=== PATIENT | male | born 1975 | race Caucasian/White ===

== ENCOUNTER 2017-03-18 17:29 | Emergency (ER) | payer MEDICAID ==
[2017-03-18] MEDS: SOD CHLORIDE 0.9% 1,000 ML IV ×3 (19:00→20:30)
[2017-03-18 19:31] LABS: ADD MAN DIFF? NO
[2017-03-18 19:35] LABS: WHITE BLOOD COUNT 4.1 10^3/ul (4.8-10.8)
[2017-03-18 19:35] LABS: EOSINOPHILS % 0.7 % (0.0-7.0); HEMATOCRIT 40.2 % (42.0-52.0); HEMOGLOBIN 14.1 g/dl (14.0-18.0); LYMPHOCYTES # 1.5 10^3/ul (0.8-2.9); LYMPHOCYTES % 36.7 % (15.0-51.0); MEAN CORPUSCULAR HEMOGLOBIN 29.8 pg (29.0-33.0); MEAN CORPUSCULAR HGB CONC 35.1 g/dl (32.0-37.0); MEAN PLATELET VOLUME 10.4 fl (7.4-10.4); MONOCYTE # 0.4 10^3/ul (0.3-0.9); NEUTROPHIL # 2.1 10^3/ul (1.6-7.5); NEUTROPHILS % 51.4 % (39.0-77.0); PLATELET COUNT 254 10^3/UL (140-415); RED BLOOD COUNT 4.73 10^6/ul (4.70-6.10); RED CELL DISTRIBUTION WIDTH 11.9 % (11.5-14.5)
[2017-03-18] MEDS: ONDANSETRON 4 MG INJ IV (19:50)
[2017-03-18 20:02] LABS: ANION GAP 14 (8-16)
[2017-03-18 20:07] LABS: ALANINE AMINOTRANSFERASE 45 IU/L (13-69); ALBUMIN/GLOBULIN RATIO 1.25; ALKALINE PHOSPHATASE 196 IU/L (42-121); ASPARTATE AMINO TRANSFERASE 18 IU/L (15-46); BILIRUBIN,INDIRECT 0.2 mg/dl (0-1.1); BILIRUBIN,TOTAL 0.2 mg/dl (0.2-1.3); BLOOD UREA NITROGEN 14 mg/dl (7-20); CALCIUM 7.5 mg/dl (8.4-10.2); CARBON DIOXIDE 20 mmol/L (21-31); CHLORIDE 103 mmol/L (97-110); CREATININE 0.56 mg/dl (0.61-1.24); LIPASE 163 U/L (23-300); POTASSIUM 3.4 mmol/L (3.5-5.1); SODIUM 134 mmol/L (135-144); TOTAL PROTEIN 5.4 g/dl (6.1-8.1)
[2017-03-18 20:07] LABS: LACTIC ACID 0.9 mmol/L (0.5-2.0)
[2017-03-18 20:10] LABS: GLUCOSE 508 mg/dl (70-220)
[2017-03-18 20:28] LABS: ADD UMIC NO; UR ASCORBIC ACID NEGATIVE (NEGATIVE); UR BILIRUBIN (Dip) NEGATIVE (NEGATIVE); UR BLOOD (Dip) NEGATIVE (NEGATIVE); UR CLARITY CLEAR (CLEAR); UR COLOR COLORLESS (YELLOW); UR GLUCOSE (Dip) 3+ mg/dL (NEGATIVE); UR KETONES (Dip) 1+ mg/dL (NEGATIVE); UR LEUKOCYTE ESTERASE (Dip) NEGATIVE Leu/ul (NEGATIVE); UR NITRITE (Dip) NEGATIVE (NEGATIVE); UR SPECIFIC GRAVITY (Dip) 1.027 (1.003-1.030); UR TOTAL PROTEIN (Dip) NEGATIVE (NEGATIVE); UR UROBILINOGEN (Dip) NEGATIVE (NEGATIVE)
[2017-03-18] MEDS: INSULIN GLARGINE [LANtus] 3 ML PEN SC (23:32)
== END 2017-03-19 00:19 | disposition home or self-care (01) ==
LOC: E/R 03-19 00:19
DX: E11.65 Type 2 diabetes mellitus with hyperglycemia (principal); E86.0 Dehydration; Z79.4 Long term (current) use of insulin
CPT/HCPCS: 36415; 80053; 81003; 82962; 83605; 83690; 85025; 96372; 96374; 99284-25